=== PATIENT | male | born 1990 | race African-American/Black ===

== ENCOUNTER 2016-10-06 04:44 | Emergency (ER) | payer MEDICAID ==
[~2016-10-06] VITALS: Ht 180.3 cm; Wt 79.0 kg
[2016-10-06] MEDS ORDERED: IBUPROFEN 800MG TABLET PO ONE (07:45)
[2016-10-06] MEDS ORDERED: TETANUS, DIPHTHERIA, PERTUSSIS VAC/PF 0.5ML (>7YR OLD) IM ONE (07:45)
[2016-10-06] MEDS ORDERED: LIDOCAINE HCL/PF 1% 2ML VIAL INFIL ONE (07:45)
[2016-10-06] MEDS ORDERED: LIDOCAINE HCL 1% 20ML VIAL (Pyxis) INJ INFIL ONE (08:15)
[2016-10-06 08:41] VITALS: BP 124/78
[2016-10-06] MEDS ORDERED: BACITRACIN ZINC OINT UDPKT TOP ONE (10:00)
== END 2016-10-06 10:12 | disposition home or self-care (01) ==
LOC: ER 07:13
DX: S61.214A Laceration without foreign body of right ring finger without damage to nail, initial encounter (principal); F12.10 Cannabis abuse, uncomplicated; F17.200 Nicotine dependence, unspecified, uncomplicated; Z88.8 Allergy status to other drugs, medicaments and biological substances; W25.XXXA Contact with sharp glass, initial encounter; Y93.89 Activity, other specified; Y92.89 Other specified places as the place of occurrence of the external cause; Y99.8 Other external cause status
CPT/HCPCS: 12002; 73130; 90471; 90715; 99284; J3490; Z7610